=== PATIENT | female | born 2000 | race Caucasian/White ===

== ENCOUNTER 2021-06-12 15:50 | Emergency (ER) | payer MEDICAID ==
[~2021-06-12] VITALS: Ht 167.6 cm; Wt 60.0 kg
[2021-06-12 16:01] VITALS: BP 117/96
== END 2021-06-12 18:03 | disposition home or self-care (01) ==
LOC: ED 16:00
DX: S63.521A Sprain of radiocarpal joint of right wrist, initial encounter (principal); X58.XXXA Exposure to other specified factors, initial encounter; Y93.89 Activity, other specified; Y92.89 Other specified places as the place of occurrence of the external cause; Y99.8 Other external cause status